=== PATIENT | female | born 1995 | race Caucasian/White ===

== ENCOUNTER 2020-11-17 20:36 | Emergency (ER) | payer SELFPAY ==
[~2020-11-17] VITALS: Ht 160 cm; Wt 60.0 kg
[2020-11-17 20:37] VITALS: BP 106/66
[2020-11-17] MEDS ORDERED: MELO15TA28 PO (20:45)
[2020-11-17] MEDS ORDERED: NAPR-885 PO (20:45)
[2020-11-17] MEDS ORDERED: TIZA4CAP6 PO (20:45)
[2020-11-17] MEDS ORDERED: diphenhydrAMINE 50MG/ML VIAL (J1200) IV STA (21:29)
[2020-11-17] MEDS ORDERED: METOCLOPRAMIDE INJ 10MG/2ML VIAL (J2765 PER 1) IV ONE (21:30)
[2020-11-17] MEDS ORDERED: NS 1,000 ML IV ONE (21:30)
[2020-11-17] MEDS ORDERED: KETOROLAC 30 MG/ML 1ML VIAL IV ONE (21:30)
[2020-11-17 21:50] LABS: BASO % 0.4 % (0.0-1.0); EOS # 0.2 10^3/uL (0.0-0.5); HEMATOCRIT 42.2 % (36.0-47.0); HEMOGLOBIN 14.3 g/dl (12.0-15.5); LYMPH % 19.4 % (24.0-44.0); MEAN CORPUSCULAR HEMOGLOBIN 29.8 pg (27.0-33.0); MEAN CORPUSCULAR HGB CONC 33.9 g/dl (32.0-36.5); MEAN CORPUSCULAR VOLUME 87.9 fl (80.0-96.0); MONO # 0.8 10^3/uL (0.0-0.8); MONO % 8.2 % (2.0-8.0); NEUTROPHILS # 7.1 10^3/uL (1.5-8.5); NEUTROPHILS % 69.4 % (36.0-66.0); PLATELET COUNT, AUTOMATED 276 10^3/uL (150-450); WHITE BLOOD COUNT 10.2 10^3/uL (4.0-10.0)
--- NOTE | 2020-11-17 22:43 | REPVR ---
PROCEDURE INFORMATION: Exam: CT Cervical Spine Without Contrast Exam date and time: 11/17/2020 10:10 PM Age: 25 years old Clinical indication: Occipital/neck pain, HX of cervical fusions TECHNIQUE: Imaging protocol: Computed tomography images of the cervical spine without contrast. Radiation optimization: All CT scans at this facility use at least one of these dose optimization techniques: automated exposure control; mA and/or kV adjustment per patient size (includes targeted exams where dose is matched to clinical indication); or iterative reconstruction. COMPARISON: No relevant prior studies available. FINDINGS: Bones/joints: The alignment of the cervical spine is within normal limits. There is no fracture or subluxation in the cervical spine. The vertebral body heights are preserved. There is hypertrophy of both transverse processes of C7. 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 No disc herniation, spinal canal stenosis, or neural foraminal stenosis is noted any of the imaged levels in the cervical spine. Prevertebral Space: No prevertebral soft tissue swelling. Lungs: The imaged lung apices are clear. The lungs were not fully imaged. Soft tissues: Unremarkable. No soft tissue fluid collection. IMPRESSION: 1. No fracture or subluxation in the cervical spine. 2. No disc herniation, spinal canal stenosis, or neural foraminal stenosis seen in the cervical spine. Electronically signed by: Matt Sands On 11/17/2020 22:42:30 PM
--- NOTE | 2020-11-17 22:43 | REPVR ---
PROCEDURE INFORMATION: Exam: CT Head Without Contrast Exam date and time: 11/17/2020 10:10 PM Age: 25 years old Clinical indication: Occipital/neck pain, HX cervical fusions TECHNIQUE: Imaging protocol: Computed tomography of the head without contrast. Radiation optimization: All CT scans at this facility use at least one of these dose optimization techniques: automated exposure control; mA and/or kV adjustment per patient size (includes targeted exams where dose is matched to clinical indication); or iterative reconstruction. COMPARISON: No relevant prior studies available. FINDINGS: Brain: There is no CT evidence for an acute large vessel territorial infarct. No acute intracranial hemorrhage is seen. No mass, mass effect, midline shift, or herniation is noted. The cortical gyration pattern, basal ganglia, thalami, brainstem, and cerebellum are normal in appearance. Cerebral ventricles: Normal. No hydrocephalus. Paranasal sinuses: The imaged portions of the sinuses are well aerated. No air-fluid levels are noted in the sinuses. Mastoid air cells: The mastoid air cells are well aerated. Auditory system: The middle ear spaces are clear. Orbital cavity: The globes and orbits are intact and normal in appearance. Bones/joints: The skull is intact. No suspicious osteolytic or osteoblastic lesion. Soft tissues: Unremarkable. No soft tissue fluid collection. IMPRESSION: No acute intracranial abnormality. Electronically signed by: Matt Sands On 11/17/2020 22:42:46 PM
== END 2020-11-17 22:45 | disposition left against medical advice (07) ==
LOC: EDSEX 20:36 → M ED 20:36
DX: M54.2 Cervicalgia (principal); R51.9 Headache, unspecified; R42 Dizziness and giddiness; M08.09 Unspecified juvenile rheumatoid arthritis, multiple sites; Z88.1 Allergy status to other antibiotic agents; Z87.891 Personal history of nicotine dependence
CPT/HCPCS: 70450; 72125; 84702; 85025; 96361; 96374; 96375; 99283; J1200; J1885; J2765